=== PATIENT | male | born 1980 | race Caucasian/White ===

== ENCOUNTER 2020-05-08 19:31 | Emergency (ER) | payer BC ==
[~2020-05-08] VITALS: Ht 182.9 cm; Wt 75.0 kg
[~2020-05-08 19:31] MED LIST: HYDR-4383 PO
[2020-05-08 19:47] VITALS: BP 119/82
== END 2020-05-08 19:53 ==
LOC: ER 19:31
DX: T75.4XXA Electrocution, initial encounter (principal); Z72.89 Other problems related to lifestyle; Z79.899 Other long term (current) drug therapy; W86.8XXA Exposure to other electric current, initial encounter; Y92.89 Other specified places as the place of occurrence of the external cause; Y93.89 Activity, other specified; Y99.8 Other external cause status
CPT/HCPCS: 99283